=== PATIENT | female | born 1975 | race Caucasian/White ===

== ENCOUNTER 2021-06-02 21:31 | Emergency (ER) | payer OTHER, SELFPAY ==
[2021-06-02] VITALS (12 sets, daily range): BP systolic 115–152; BP diastolic 37–78; PULSE 81–110; RESP 14–36; TEMP 36.7; O2SAT 85–100; BMI 31.9
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
[2021-06-02] MEDS: LORazepam 2 MG/ML VIAL IM (21:51)
--- NOTE | 2021-06-02 21:59 | ECG_ITS ---
Test Reason : CHEST PRESSURE Blood Pressure : / mmHG Vent. Rate : 090 BPM Atrial Rate : 090 BPM P-R Int : 122 ms QRS Dur : 080 ms QT Int : 370 ms P-R-T Axes : 031 054 024 degrees QTc Int : 452 ms Poor data quality Normal sinus rhythm Junctional ST depression, probably normal Borderline ECG No previous ECGs available Referred By: Parth Barboza Electronically Signed By:DAVIAN ARIZMENDI MD
[2021-06-02] MEDS: Cyclobenzaprine HCl 10 MG TABLET PO (23:38)
[2021-06-02] MEDS: traMADoL HCL 50 MG TABLET PO (23:38)
--- NOTE | 2021-06-02 23:54 | PC.NURSE ---
pt stand and pivot to w/c assisted to BR to void
== END 2021-06-02 23:54 | disposition home or self-care (01) ==
LOC: HO.ED 23:33
PROVIDERS: Emergency Provider Internal Medicine; PCP Internal Medicine
DX: M79.7 Fibromyalgia (principal); R07.89 Other chest pain; F41.0 Panic disorder [episodic paroxysmal anxiety]; F43.0 Acute stress reaction; Z79.899 Other long term (current) drug therapy
CPT/HCPCS: 93005; 96372; 99284; 99285; J2060